=== PATIENT | male | born 1980 | race Caucasian/White ===

== ENCOUNTER 2019-01-12 09:15 | Emergency (ER) | payer BC ==
[2019-01-12 09:20] VITALS: BP 142/95; PULSE 90; RESP 18; TEMP 98
[2019-01-12] MEDS ORDERED: ACET/COD 300 MG/30 MG STARTER PACK 6 TAB BTL PO STA (09:33)
[2019-01-12] MEDS ORDERED: KETOROLAC 60 MG/2 ML VIAL IM STA (09:33)
--- NOTE | 2019-01-12 09:36 | ED ---
Extremity Problem HPI - General Chief complaint: Extremity Problem,Nontraumatic Stated complaint: Left shoulder pain Time Seen by Provider: 01/12/19 09:26 Source: patient, RN notes reviewed Mode of arrival: ambulatory Limitations: no limitations - History of Present Illness Initial comments: 39-year-old male presents emergency Department with chief complaint of left shoulder pain. Patient states his been having increasing symptoms last 2 days. Denies any trauma. Patient states that at rest he has no pain states since he moves it he has discomfort which feels like it's in the joint. Patient had no prior surgeries. Denies any paresthesias. Patient has no chest pain or shortness breath. Patient denies any rashes, swelling and redness to the joint. Patient has not taken any Tylenol or Motrin this time. - Related Data Previous Rx's Medication Instructions Recorded Cyclobenzaprine [Flexeril] 10 mg PO TID PRN #15 tab 01/12/19 Ibuprofen [Motrin] 600 mg PO Q8HR PRN #30 tab 01/12/19 Allergies Allergy/AdvReac Type Severity Reaction Status Date / Time No Known Allergies Allergy Verified 01/12/19 09:18 Review of Systems ROS Statement: Those systems with pertinent positive or pertinent negative responses have been documented in the HPI. ROS Other: All systems not noted in ROS Statement are negative. Past Medical History Past Medical History: No Reported History History of Any Multi-Drug Resistant Organisms: None Reported Additional Past Surgical History / Comment(s): LT knee surgery Past Psychological History: No Psychological Hx Reported Smoking Status: Never smoker Past Alcohol Use History: None Reported Past Drug Use History: None Reported General Exam Limitations: no limitations General appearance: alert, in no apparent distress Head exam: Present: atraumatic, normocephalic, normal inspection Neck exam: Present: normal inspection, full ROM. Absent: tenderness, me ningismus, lymphadenopathy Respiratory exam: Present: normal lung sounds bilaterally. Absent: respiratory distress, wheezes, rales, rhonchi, stridor Cardiovascular Exam: Present: regular rate, normal rhythm, normal heart sounds. Absent: systolic murmur, diastolic murmur, rubs, gallop, clicks Extremities exam: Present: other (Left shoulder limited range of motion secondary to pain, arm is neurovascularly intact, there is tenderness over the lateral anterior shoulder region, there is no swelling no ecchymosis. Patient has full range of motion at the left elbow, full strength. Patient reports pain with internal rotation) Skin exam: Present: warm, dry, intact, normal color. Absent: rash Course Vital Signs 01/12/19 09:18 Temperature 98 F Pulse Rate 90 Respiratory 18 Rate Blood Pressure 142/95 O2 Sat by Pulse 97 Oximetry Medical Decision Making - Medical Decision Making 39-year-old male presented from for left shoulder pain. Patient symptoms are consistent with bursitis. Patient given Toradol in emergency department. Patient treated with anti-inflammatories, muscle relaxers. Return parameters were discussed. Disposition Clinical Impression: Left shoulder pain, Bursitis of left shoulder Disposition: HOME SELF-CARE Condition: Stable Instructions (If sedation given, give patient instructions): Shoulder Bursitis (ED) Additional Instructions: Please return to the Emergency Department if symptoms worsen or any other concerns. Prescriptions: Cyclobenzaprine [Flexeril] 10 mg PO TID PRN #15 tab PRN Reason: Muscle Spasm Ibuprofen [Motrin] 600 mg PO Q8HR PRN #30 tab PRN Reason: Pain Is patient prescribed a controlled substance at d/c from ED?: No Referrals: Umer Foster MD [Primary Care Provider] - 1-2 days Adama Mandel DO [Doctor of Osteopathic Medicine] - 1-2 days Time of Disposition: 09:36
== END 2019-01-12 09:58 | disposition home or self-care (01) ==
LOC: EC 09:15
DX: M75.52 Bursitis of left shoulder (principal)
CPT/HCPCS: 99283; 96372; J1885

== ENCOUNTER 2024-08-08 14:47 | Observation (INO) | payer BC, OTHER ==
[2024-08-08] MEDS ORDERED: VANCOMYCIN IV PER PHARMACY 1 EACH MISC MISCELLANE PRN (15:25)
--- NOTE | 2024-08-08 16:05 | XR ---
Right hand Limited HISTORY: Puncture wound medial palm. COMPARISON: None TECHNIQUE: 2 views of the right hand were obtained. FINDINGS: There is mild swelling of the medial aspect of the right hand. The osseous structures are intact there is no fracture or focal intraosseous abnormality. No articula r abnormalities are seen. There are no radiopaque foreign bodies. IMPRESSION: Soft tissue swelling in the medial right hand with no radiopaque foreign body. No osseous or intra-ar ticular abnormalities. [facility], , 08/08/2024 4:02 PM
[2024-08-08] MEDS: SODIUM CHLORIDE 0.9% 1,000 ML IV STA (16:07)
[2024-08-08] MEDS: VANCOMYCIN 2,000 MG in SODIUM CHLORIDE 0.9% 500 ML 500 ML IVPB STA (16:07)
[2024-08-08 16:14] LABS: Basophils % (A) 0 %; Eosinophils # (A) 0.1 k/uL (0-0.7); Eosinophils % (A) 2 %; HCT 44.4 % (39.0-53.0); HGB 14.5 gm/dL (13.0-17.5); Lymphocytes # (A) 1.1 k/uL (1.0-4.8); Lymphocytes % (A) 23 %; MCH 29.6 pg (25.0-35.0); MCHC 32.7 g/dL (31.0-37.0); MCV 90.7 fL (80.0-100.0); Mean Platelet Volume 7.9; Monocytes # (A) 0.4 k/uL (0-1.0); Monocytes % (A) 8 %; Neutrophils % (A) 64 %; Platelet Count 167 k/uL (150-450); RDW 12.1 % (11.5-15.5); WBC 4.7 k/uL (3.8-10.6)
[2024-08-08 16:31] LABS: ALT 43 U/L (4-49); African American GFR (CKD) >90 (>60 ml/min/1.73 sqM); Albumin 4.7 g/dL (3.5-5.0); Anion Gap 10 mmol/L; Blood Urea Nitrogen 15 mg/dL (9-20); Calcium 9.6 mg/dL (8.4-10.2); Carbon Dioxide 25 mmol/L (22-30); Chloride 102 mmol/L (98-107); Glucose 92 mg/dL (74-99); Non-African American GFR(CKD) 90 (>60 ml/min/1.73 sqM); Sodium 137 mmol/L (137-145); Total Bilirubin 1.4 mg/dL (0.2-1.3); Total Protein 7.6 g/dL (6.3-8.2)
[2024-08-08] MEDS ORDERED: ONDANSETRON 4 MG/2 ML VIAL IVP PRN (16:54)
[2024-08-08] MEDS ORDERED: NALOXONE 0.4 MG/ML 1 ML VIAL IV PRN (16:54)
--- NOTE | 2024-08-08 16:57 | ED ---
General Adult HPI - General Chief complaint: Skin/Abscess/Foreign Body Stated complaint: R hand injury Time Seen by Provider: 08/08/24 15:18 Source: patient, RN notes reviewed, old records reviewed Mode of arrival: ambulatory Limitations: no limitations - History of Present Illness Initial comments: Patient is a 44-year-old male who presents emergency department for hand infection. Had a right palmar puncture on Monday at work by a piece of metal. Is up-to-date on tetanus. Was started on antibiotics at that time. Return to his outpatient clinic and hand was more swollen. Concern for possible worsening infection. Presents here for further evaluation and likely admission. No other acute complaints or medical history. Endorses right hand swelling but still has normal sensation. Slightly decreased range of motion secondary to edema however no loss of pulses. No loss of sensation. Presents for further evaluation. - Related Data Home Medications Medication Instructions Recorded Confirmed Ibuprofen [Motrin Ib] 400 - 600 mg PO Q8H PRN 08/08/24 08/08/24 Allergies Allergy/AdvReac Type Severity Reaction Status Date / Time No Known Allergies Allergy Verified 08/08/24 16:46 Review of Systems ROS Statement: Those systems with pertinent positive or pertinent negative responses have been documented in the HPI. Review of Systems: CONST: Denies fever EYES: Denies blurry vision ENT: Denies nasal congestion C/V: Denies Chest pain RESP: Denies shortness of breath GI: Denies abdominal pain : Denies dysuria SKIN: Endorses small puncture wound to right hand. MSK: Endorses right-hand swelling NEURO: Denies headache ROS Other: All systems not noted in ROS Statement are negative. Past Medical History Past Medical History: No Reported History History of Any Multi-Drug Resistant Organisms: None Reported Additional Past Surgical History / Comment(s): LT knee surgery Past Psychological History: No Psychological Hx Reported Smoking Status: Never smoker Past Alcohol Use History: None Reported Past Drug Use History: None Reported General Exam - General Exam Comments Initial Comments: General: Appears in no acute distress. HEAD: Normal with no signs of head trauma. EYES: EOMI ENT: Hearing grossly intact RESPIRATORY: Clear breath sounds bilaterally. No wheezes, rales, or rhonchi. C/V: Regular rate and rhythm. S1 and S2 auscultated, peripheral pulses 2+ and intact throughout ABD: Abd is soft, nontender, nondistended EXT: Normal range of motion, no obvious deformity SKIN: Right hand edema. Neurovascular intact. No concern for compartment syndrome at this time. Good peripheral pulses and good capillary refill. Patient does have a small entry wound with no significant discharge at this time. Edema does spread slightly into the wrist. Mild erythema. Warm to touch. NEURO: Alert and oriented x 4. No focal sensory or strength deficits. Limitations: no limitations Course Vital Signs 08/08/24 08/08/24 08/08/24 14:53 17:16 18:19 Temperature 98.3 F 99.5 F Pulse Rate 92 81 75 Respiratory 18 18 16 Rate Blood Pressure 144/92 145/88 152/89 O2 Sat by Pulse 97 98 99 Oximetry 08/08/24 20:00 Temperature 102 F H Pulse Rate 73 Respiratory 18 Rate Blood Pressure 154/94 O2 Sat by Pulse Oximetry Medical Decision Making - Medical Decision Making Was pt. sent in by a medical professional or institution (, PA, [employer], urgent care, hospital, or residential...) When possible be specific @ -Sent in by clinic for admission for IV antibiotics. Did you speak to anyone other than the patient for history (EMS, parent, family, police, friend...)? What history was obtained from this source @ -No Did you review nursing and triage notes (agree or disagree)? Why? @ -I reviewed and agree with nursing and triage notes Were old charts reviewed (outside hosp., previous admission, EMS record, old EKG, old radiological studies, urgent care reports/EKG's, residential records)? Report findings @ -No old charts were reviewed Differential Diagnosis (chest pain, altered mental status, abdominal pain women, abdominal pain men, vaginal bleeding, weakness, fever, dyspnea, syncope, heada debi, dizziness, GI bleed, back pain, seizure, CVA, palpatations, mental health, musculoskeletal)? @ -Cellulitis, abscess, compartment syndrome. This list is not all inclusive. EKG interpreted by me (3pts min.). @ -None done X-rays interpreted by me (1pt min.). @ -X-ray shows soft tissue edema. CT interpreted by me (1pt min.). @ -None done U/S interpreted by me (1pt. min.). @ -None done What testing was considered but not performed or refused? (CT, X-rays, U/S, labs)? Why? @ -None What meds were considered but not given or refused? Why? @ -None Did you discuss the management of the patient with other professionals (professionals i.e. , PA, FR[employer] C[employer]ER, lab, RT, psych nurse, social media community manager, medical reviewer, teacher, supply requirements officer, equity manager)? Give summary @ -No Was smoking cessation discussed for >3mins.? @ -No Was critical care preformed (if so, how long)? @ -No Were there social determinants of health that impacted care today? How? (Homelessness, low income, unemployed, alcoholism, drug addiction, transportation, low edu. Level, literacy, decrease access to med. care, fdc, rehab)? @ -No Was there de-escalation of care discussed even if they declined (Discuss DNR or withdrawal of care, Hospice)? DNR status @ -No What co-morbidities impacted this encounter? (DM, HTN, Smoking, COPD, CAD, Cancer, CVA, ARF, Chemo, Hep., AIDS, mental health diagnosis, sleep apnea, morbid obesity)? @ -None Was patient admitted / discharged? Hospital course, mention meds given and route, prescriptions, significant lab abnormalities, going to OR and other pertinent info. @ -Patient presents for concern for worsening right hand infection. Patient is up-to-date on tetanus. Will obtain infectious labs and admit the patient for failed outpatient treatment of cellulitis. Patient be started on IV vancomycin. He will be started on IV fluids. He was in agreement this plan. Vitals are within acceptable limits. Blood cultures obtained and sent. Labs are remarkable for no evidence of leuko cytosis. Remainder the labs unremarkable including normal lactic acid. X-ray shows soft tissue swelling. Patient will be admitted at this time. He was in agreement this plan. I spoke with the admitting provider, Dr. Greenwood who accepted the admission. Undiagnosed new problem with uncertain prognosis? @ -No Drug Therapy requiring intensive monitoring for toxicity (Heparin, Nitro, Insulin, Cardizem)? @ -No Were any procedures done? @ -No Diagnosis/symptom? @ -Cellulitis of hand Acute, or Chronic, or Acute on Chronic? @ -Acute Uncomplicated (without systemic symptoms) or Complicated (systemic symptoms)? @ -Complicated Side effects of treatment? @ -No Exacerbation, Progression, or Severe Exacerbation? @ -No Poses a threat to life or bodily function? How? (Chest pain, [place], MA, pneumonia, PE, COPD, DKA, ARF, appy, cholecystitis, CVA, Diverticulitis, Homicidal, Suicidal, threat to staff... and all critical care pts) @ -Yes - Lab Data Result diagrams: 08/08/24 15:44 08/08/24 15:44 Lab Results 08/08/24 08/08/24 08/08/24 Range/Units 15:44 15:44 15:44 WBC 4.7 (3.8-10.6) k/uL RBC 4.90 (4.30-5.90) m/uL Hgb 14.5 (13.0-17.5) gm/dL Hct 44.4 (39.0-53.0) % MCV 90.7 (80.0-100.0) fL MCH 29.6 (25.0-35.0) pg MCHC 32.7 (31.0-37.0) g/dL RDW 12.1 (11.5-15.5) % Plt Count 167 (150-450) k/uL MPV 7.9 Neutrophils % 64 % Lymphocytes % 23 % Monocytes % 8 % Eosinophils % 2 % Basophils % 0 % Neutrophils # 3.0 (1.3-7.7) k/uL Lymphocytes # 1.1 (1.0-4.8) k/uL Monocytes # 0.4 (0-1.0) k/uL Eosinophils # 0.1 (0-0.7) k/uL Basophils # 0.0 (0-0.2) k/uL Sodium 137 (137-145) mmol/L Potassium 5.1 (3.5-5.1) mmol/L Chloride 102 (98-107) mmol/L Carbon Dioxide 25 (22-30) mmol/L Anion Gap 10 mmol/L BUN 15 (9-20) mg/dL Creatinine 1.02 (0.66-1.25) mg/dL Est GFR (CKD-EPI)AfAm >90 (>60 ml/min/1.73 sqM) Est GFR (CKD-EPI)NonAf 90 (>60 ml/min/1.73 sqM) Glucose 92 (74-99) mg/dL Plasma Lactic Acid [place] 0.9 (0.7-2.0) mmol/L Calcium 9.6 (8.4-10.2) mg/dL Total Bilirubin 1.4 H (0.2-1.3) mg/dL AST 57 (17-59) U/L ALT 43 (4-49) U/L Alkaline Phosphatase 35 L (38-126) U/L Total Protein 7.6 (6.3-8.2) g/dL Albumin 4.7 (3.5-5.0) g/dL Disposition Clinical Impression: Cellulitis of hand Disposition: ADMITTED IP TO THIS HOSP Condition: Stable Time of Disposition: 16:45
[2024-08-08 17:00] LABS: AST 57 U/L (17-59); Alkaline Phosphatase 35 U/L (38-126); Potassium 5.1 mmol/L (3.5-5.1)
--- NOTE | 2024-08-08 17:53 | P.HPIM ---
History of Present Illness H&P Date: 08/08/24 44 year old M with no significant PMH presents to the ED. He reports a puncture wound from a file that happened on Monday. He saw occupational health and had the wound irrigated and was started on Clindamycin. During his follow up with occupational health today, he was advised to go to the ED. He reports redness extending past the wrist. He denies any fever or chills. He is right handed. In the ED he underwent extensive evaluation. BP 144/92, HR 92, RR 18, T 98.3F, 97% on RA. CBC and CMP significant for T. Bili 1.4, alk phos 35. Lactic acid 0.9. XR showed soft tissue swelling medial right hand with no radiopaque foreign body. Patient is admitted for right hand cellulitis failed outpatient treatment. General: non toxic, no distress, appears at stated age Derm: warm, dry Head: atraumatic, normocephalic, symmetric Eyes: EOMI, no lid lag, anicteric sclera Mouth: no lip lesion, mucus membranes moist Cardiovascular: S1 S2 reg. No murmurs, rubs, gallops Lungs: Clear to auscultation bilaterally, no accessory muscle use Ext: Right hand puncture wound medial volvar hand with no fluctuance or drainage with erythema extending above the wrist medially. Neuro: no focal neuro deficits Psych: Alert, oriented, appropriate affect Based on my assessment of this patient, this patient meets a high complexity level of care. Right hand cellulitis: Start Vancomycin dosed per pharmacy. Monitor renal function and vanc trough. Pain control with Tylenol 650 mg PO Q6H PRN, Iburpofen 400 mg PO Q6H PRN. Follow WCx and BCx. ID consulted. Elevated BP without the diagnosis of hypertension: Monitor BP. Would recommend weight loss and low salt diet at this time. Elevated total bilirubin: Unknown etiology. Monitor and outpatient workup. Obesity: Structured weight loss program. CODE STATUS: FULL CODE. DVT Prophylaxis: SCD GI Prophylaxis: Designated medical POA if patient is not able to make medical decisions for themselves: I have reviewed the following professional benefits sales consultant notes: ER note. I have reviewed the results of the following tests: As above. I have ordered the following tests: As above. I have discussed the care of this patient with the following independent historian: I have independently interpreted the following test below: I have discussed the management of this patient with the following physician: Dr. Burns Past Medical History Past Medical History: No Reported History History of Any Multi-Drug Resistant Organisms: None Reported Additional Past Surgical History / Comment(s): LT knee surgery Past Psychological History: No Psychological Hx Reported Smoking Status: Never smoker Past Alcohol Use History: None Reported Past Drug Use History: None Reported Medications and Allergies Home Medications Medication Instructions Recorded Confirmed Type Ibuprofen [Motrin Ib] 400 - 600 mg PO Q8H PRN 08/08/24 08/08/24 History Allergies Allergy/AdvReac Type Severity Reaction Status Date / Time No Known Allergies Allergy Verified 08/08/24 16:46 Physical Exam Vitals: Vital Signs Temp Pulse Resp BP Pulse Ox 08/08/24 17:16 81 18 145/88 98 08/08/24 14:53 98.3 F 92 18 144/92 97 Intake and Output 08/08/24 08/08/24 08/08/24 06:59 14:59 22:59 Other: Weight 129.274 kg Results CBC & Chem 7: 08/08/24 15:44 08/08/24 15:44 Labs: Abnormal Lab Results - Last 24 Hours (Table) 08/08/24 Range/Units 15:44 Total Bilirubin 1.4 H (0.2-1.3) mg/dL Alkaline Phosphatase 35 L (38-126) U/L
[2024-08-08] MEDS: SODIUM CHLORIDE 0.9% 1,000 ML IV SCH (18:18)
[2024-08-08] MEDS: ACETAMINOPHEN TAB 325 MG TAB PO PRN (20:24)
[2024-08-08] MEDS: IBUPROFEN 400 MG TAB PO PRN (21:06)
[2024-08-08] MEDS: VANCOMYCIN 2,000 MG in SODIUM CHLORIDE 0.9% 500 ML 500 ML IVPB SCH (23:30)
[2024-08-09 08:43] LABS: Basophils # (A) 0.03 X 10*3/uL (0.00-0.10); Basophils % (A) 0.6 %; Eosinophils # (A) 0.13 X 10*3/uL (0.04-0.35); Eosinophils % (A) 2.8 %; HCT 41.2 % (39.6-50.0); HGB 14.2 g/dL (13.0-17.0); Lymphocytes # (A) 1.88 X 10*3/uL (0.90-5.00); Lymphocytes % (A) 39.9 %; MCH 30.8 pg (27.0-32.0); MCHC 34.5 g/dL (32.0-37.0); MCV 89.4 FL (80.0-97.0); Mean Platelet Volume 10.5 FL (9.5-12.2); Monocytes # (A) 0.71 X 10*3/uL (0.20-1.00); Monocytes % (A) 15.1 %; NRBC Per 100 WBC 0 X 10*3/uL (0.00-0.01); Neutrophils # (A) 1.94 X 10*3/uL (1.80-7.70); Neutrophils % (A) 41.2 %; Platelet Count 169 X 10*3/uL (140-440); RBC 4.61 X 10*6/uL (4.40-5.60); RDW 12.1 % (11.5-14.5); WBC 4.71 X 10*3/uL (4.50-10.00)
[2024-08-09 08:50] LABS: ALT 31 U/L (10-49); AST 27 U/L (14-35); Albumin 3.8 g/dL (3.8-4.9); Albumin/Globulin Ratio 1.73 Ratio (1.60-3.17); Alkaline Phosphatase 41 U/L (41-126); Blood Urea Nitrogen 9.3 mg/dL (9.0-27.0); Calcium 8.3 mg/dL (8.7-10.3); Carbon Dioxide 25.1 mmol/L (21.6-31.8); Chloride 106 mmol/L (96-109); Globulin 2.2 g/dL (1.6-3.3); Glucose 95 mg/dL (70-110); Sodium 140 mmol/L (135-145); Total Bilirubin 0.5 mg/dL (0.3-1.2)
--- NOTE | 2024-08-09 13:16 | P.PN ---
Subjective Progress Note Date: 08/09/24 44 year old M with no significant PMH presents to the ED. He reports a puncture wound from a file that happened on Monday. He saw occupational health and had the wound irrigated and was started on Clindamycin. During his follow up with occupational health today, he was advised to go to the ED. He reports redness extending past the wrist. He denies any fever or chills. He is right handed. In the ED he underwent extensive evaluation. BP 144/92, HR 92, RR 18, T 98.3F, 97% on RA. CBC and CMP significant for T. Bili 1.4, alk phos 35. Lactic acid 0.9. XR showed soft tissue swelling medial right hand with no radiopaque foreign body. Patient is admitted for right hand cellulitis failed outpatient treatment. 08/09 Patient was seen and examined. No complaints. Doing well. Right hand swelling and redness going down. CBC and CMP significant for Ca 8.3, total protein 6. Discussed with Dr. Douglas, continue antibiotics for 1 more day. General: non toxic, no distress, appears at stated age Derm: warm, dry Head: atraumatic, normocephalic, symmetric Eyes: EOMI, no lid lag, anicteric sclera Mouth: no lip lesion, mucus membranes moist Cardiovascular: good distal perfusion in all 4 extremities Lungs: breathing comfortably, no accessory muscle use Ext: Right hand puncture wound medial volvar hand with no fluctuance or drainage with erythema extending above the wrist medially. Neuro: no focal neuro deficits Psych: Alert, oriented, appropriate affect Based on my assessment of this patient, this patient meets a high complexity level of care. Right hand cellulitis: Vancomycin dosed per pharmacy. Monitor renal function and vanc trough. Pain control with Tylenol 650 mg PO Q6H PRN, Iburpofen 400 mg PO Q6H PRN. Follow WCx and BCx. ID consulted. Elevated BP without the diagnosis of hypertension: Monitor BP. Would recommend weight loss and low salt diet at this time. Elevated total bilirubin: Unknown etiology. Monitor and outpatient workup. Obesity: Structured weight loss program. CODE STATUS: FULL CODE. DVT Prophylaxis: SCD GI Prophylaxis: Designated medical POA if patient is not able to make medical decisions for themselves: I have reviewed the following international travel consultant notes: I have reviewed the results of the following tests: CBC, CMP. I have ordered the following tests: BMP, Vanc trough in AM. I have discussed the care of this patient with the following independent historian: I have independently interpreted the following test below: I have discussed the management of this patient with the following physician: Dr. Douglas Objective - Vital Signs Vital signs: Vital Signs Temp 97.7 F 08/09/24 07:20 Pulse 64 08/09/24 07:20 Resp 18 08/09/24 07:20 BP 128/89 08/09/24 07:20 Pulse Ox 96 08/09/24 07:20 FiO2 Intake & Output 08/08/24 08/09/24 08/09/24 18:59 06:59 18:59 Weight 129.274 kg Other: Voiding Method Toilet # Voids 3 - Labs CBC & Chem 7: 08/09/24 04:16 08/09/24 04:16 Labs: Abnormal Lab Results - Last 24 Hours (Table) 08/08/24 08/09/24 Range/Units 15:44 04:16 BUN/Creatinine Ratio 9.30 L (12.00-20.00) Ratio Calcium 8.3 L (8.7-10.3) mg/dL Total Bilirubin 1.4 H (0.2-1.3) mg/dL Alkaline Phosphatase 35 L (38-126) U/L Total Protein 6.0 L (6.2-8.2) g/dL
--- NOTE | 2024-08-09 23:12 | P.CONS ---
History of Present Illness - Reason for Consult Consult date: 08/09/24 Hand cellulitis Requesting physician: Albert Burns - Chief Complaint Right hand swelling x 2 days - History of Present Illness Patient is a 44-year-old male with no significant past medical history presenting to the hospital for evaluation of right hand swelling apparently the patient did have a puncture wound from a piece of metal at work on Monday that is 3 days before presentation to the hospital patient mention he is up-to-date on tetanus and was seen at an urgent care with the patient has been prescribed Augmentin that he took however the patient noticed to have increasing swelling to the right hand with which concerned the patient subsequently presented to hospital patient did have mild dull aching pain without radiation and no significant purulent drainage on presentation to the hospital the patient was afebrile however last night he did spike a fever of 102 F patient was nontachycardic hypotensive or hypoxic patient did have a white count of 4.7 creatinine has been normal liver enzymes are normal local cultures obtained which are currently pending patient did have x-ray of the hand soft tissue swelling in the medial right hand with no radiopaque foreign body infectious disease was consulted for further management of antibiotic therapy Review of Systems Positive point and negatives has been mentioned in the HPI, complete review of systems was performed and all other systems are negative Past Medical History Past Medical History: No Reported History History of Any Multi-Drug Resistant Organisms: None Reported Additional Past Surgical History / Comment(s): LT knee surgery Past Anesthesia/Blood Transfusion Reactions: No Reported Reaction Past Psychological History: No Psychological Hx Reported Smoking Status: Never smoker Past Alcohol Use History: None Reported Past Drug Use History: None Reported Medications and Allergies Home Medications Medication Instructions Recorded Confirmed Type Ibuprofen [Motrin Ib] 400 - 600 mg PO Q8H PRN 08/08/24 08/08/24 History Allergies Allergy/AdvReac Type Severity Reaction Status Date / Time No Known Allergies Allergy Verified 08/08/24 16:46 Physical Exam Vitals: Vital Signs Temp Pulse Pulse Resp BP BP BP 08/09/24 07:20 97.7 F 64 18 128/89 08/09/24 01:31 98.3 F 78 16 110/65 08/08/24 22:10 99.5 F 08/08/24 20:55 100.2 F H 92 16 160/95 08/08/24 20:00 102 F H 73 18 154/94 08/08/24 18:19 99.5 F 75 16 152/89 08/08/24 17:16 81 18 145/88 08/08/24 14:53 98.3 F 92 18 144/92 Pulse Ox 08/09/24 07:20 96 08/09/24 01:31 96 08/08/24 22:10 08/08/24 20:55 100 08/08/24 20:00 08/08/24 18:19 99 08/08/24 17:16 98 08/08/24 14:53 97 Intake and Output 08/08/24 08/09/24 08/09/24 22:59 06:59 14:59 Other: Voiding Method Toilet # Voids 2 3 Weight 129.274 kg GENERAL DESCRIPTION: Middle-aged male lying in bed, no distress. No tachypnea or accessory muscle of respiration use. HEENT: Shows Pallor , no scleral icterus. Oral mucous membrane is dry. No pharyngeal erythema or thrush NECK: Trachea central, no thyromegaly. LUNGS: Unlabored breathing. Clear to auscultation anteriorly. No wheeze or crackle. HEART: S1, S2, regular rate and rhythm. No loud murmur ABDOMEN: Soft, no tenderness , guarding or rigidity, no organomegaly EXTREMITIES: Right hand palmar aspect did have a puncture wound with some swelling no purulent drainage was noticed SKIN: No rash, no masses palpable. NEUROLOGICAL: The patient is awake, alert, oriented x3, mood and affect normal. Results CBC & Chem 7: 08/09/24 04:16 08/09/24 04:16 Labs: Abnormal Lab Results - Last 24 Hours (Table) 08/08/24 08/09/24 Range/Units 15:44 04:16 BUN/Creatinine Ratio 9.30 L (12.00-20.00) Ratio Calcium 8.3 L (8.7-10.3) mg/dL Total Bilirubin 1.4 H (0.2-1.3) mg/dL Alkaline Phosphatase 35 L (38-126) U/L Total Protein 6.0 L (6.2-8.2) g/dL Assessment and Plan (1) Cellulitis of hand Current Visit: Yes Status: Acute Code(s): L03.119 - CELLULITIS OF UNSPECIFIED PART OF LIMB SNOMED Code(s): 46574604 (2) Failure of outpatient treatment Current Visit: Yes Status: Acute Code(s): Z78.9 - OTHER SPECIFIED HEALTH STATUS SNOMED Code(s): 588293800 Plan: 1patient presented to hospital with right hand swelling in this patient who did have a puncture wound to the palmar aspect of the right hand 3 days before presentation to hospital did have x-ray did not show any foreign body at the pat ient did not responded to the outpatient oral Augmentin therapy with a question of possible community associated MRSA. 2keeping in mind the patient did have fever last night and the culture still pending we will recommend to keep the patient on IV antibiotic for another 24 to 48-hour depending upon the culture and clinical response this has been discussed with admitting physician. 3vancomycin pharmacy to dose target trough of 15 while watching kidney function and Vanco trough closely We will follow on clinical condition and cultures to further adjust medication if needed Thank you for this consultation we will follow the patient along with you Dictation was produced using [employer] dictation software. please excuse any grammatical, word or spelling errors. Time with Patient: Greater than 30
[2024-08-10 07:40] VITALS: BP 130/78; PULSE 60; RESP 17; TEMP 97.9
[2024-08-10] MEDS: VANCOMYCIN TROUGH DUE 1 EACH MISC MISCELLANE ONE (08:14)
[2024-08-10 08:24] LABS: African American GFR (CKD) >90 (>60 ml/min/1.73 sqM); Non-African American GFR(CKD) >90 (>60 ml/min/1.73 sqM)
--- NOTE | 2024-08-10 12:00 | P.DS ---
Providers Date of admission: 08/08/24 16:56 Expected date of discharge: 08/10/24 Attending physician: Sanaz Greenwood MD Consults: 08/08/24 16:54 Consult Physician Routine Consulting Provider: Radha Douglas Consult Reason/Comments: hand cellulitis Do you want consulting provider notified?: Yes Primary care physician: [facility] Course: 44 year old M with no significant PMH presents to the ED. He reports a puncture wound from a file that happened on Monday. He saw occupational health and had the wound irrigated and was started on Clindamycin. During his follow up with occupational health today, he was advised to go to the ED. He reports redness extending past the wrist. He denies any fever or chills. He is right handed. In the ED he underwent extensive evaluation. BP 144/92, HR 92, RR 18, T 98.3F, 97% on RA. CBC and CMP significant for T. Bili 1.4, alk phos 35. Lactic acid 0.9. XR showed soft tissue swelling medial right hand with no radiopaque foreign body. Patient is admitted for right hand cellulitis failed outpatient treatment. 08/09 Patient was seen and examined. No complaints. Doing well. Right hand swelling and redness going down. CBC and CMP significant for Ca 8.3, total protein 6. Discussed with Dr. Douglas, continue antibiotics for 1 more day. 08/10 Patient was seen and examined. Improved erythema and swelling. Discussed with Dr. Douglas, OK for discharge on Bactrim. Plans for discharge home today. Follow up with PCP within 1-[address] Douglas within 1 week of discharge. General: non toxic, no distress, appears at stated age Derm: warm, dry Head: atraumatic, normocephalic, symmetric Eyes: EOMI, no lid lag, anicteric sclera Mouth: no lip lesion, mucus membranes moist Cardiovascular: good distal perfusion in all 4 extremities Lungs: breathing comfortably, no accessory muscle use Ext: Right hand puncture wound medial volvar hand with no fluctuance or drainage with erythema extending above the wrist medially (improved) Neuro: no focal neuro deficits Psych: Alert, oriented, appropriate affect Discharge Diagnosis: Right hand cellulitis Elevated BP without the diagnosis of hypertension Elevated total bilirubin Obesity This complex discharge took 35 minutes to complete. Patient Condition at Discharge: Stable Plan - Discharge Summary Discharge Rx Participant: No New Discharge Prescriptions: New Sulfamethox-Tmp 800-160Mg [Bactrim DS 800-160 mg] 1 tab PO Q12HR #20 tab Continue Ibuprofen [Motrin Ib] 400 - 600 mg PO Q8H PRN PRN Reason: Fever And/ Or Pain Discharge Medication List Ibuprofen [Motrin Ib] 400 - 600 mg PO Q8H PRN 08/08/24 [History] Sulfamethox-Tmp 800-160Mg [Bactrim DS 800-160 mg] 1 tab PO Q12HR #20 tab 08/10/24 [Rx] Follow up Appointment(s)/Referral(s): Umer Foster MD [Primary Care Provider] - 1-2 days Radha Douglas MD [STAFF PHYSICIAN] - 1 Week Discharge Disposition: HOME SELF-CARE
--- NOTE | 2024-08-10 13:45 | P.PN ---
Subjective Progress Note Date: 08/10/24 Principal diagnosis: Reason for follow-up is right hand cellulitis Patient is a 44-year-old male with no significant past medical history presenting to the hospital for evaluation of right hand swelling apparently the patient did have a puncture wound from a piece of metal at work on Monday subsequently seen in urgent care and the patient has been treated with Augmentin without any improvement presented to hospital with worsening swelling concerning for hand cellulitis x-rays were negative for any foreign body. On today's evaluation that is 08/10/2024,the patient denies any fever or any chills, patient is breathing comfortably on room air, the patient denies chest pain shortness of breath and no significant cough, patient denies abdominal pain, no nausea vomiting or diarrhea. Right hand swelling redness has decreased no drainage. Patient did have a creatinine 0.77 and Vanco trough is 19.8 cultures so far pending Objective - Vital Signs Vital signs: Vital Signs Temp 97.9 F 08/10/24 07:39 Pulse 60 08/10/24 07:39 Resp 17 08/10/24 07:39 BP 130/78 08/10/24 07:39 Pulse Ox 96 08/10/24 07:39 FiO2 Intake & Output 08/09/24 08/10/24 08/10/24 18:59 06:59 18:59 Intake Total 2160 Balance 2160 Intake: Oral 2160 Other: Voiding Method Toilet Toilet # Voids 1 2 - Exam GENERAL DESCRIPTION: Middle-age male lying in bed in no distress RESPIRATORY SYSTEM: Unlabored breathing , decreased breath sounds at bases HEART: S1 S2 regular rate and rhythm , ABDOMEN: Soft , no tenderness EXTREMITIES: Right hand swelling has decreased no drainage - Labs CBC & Chem 7: 08/09/24 04:16 08/10/24 07:07 Labs: Microbiology - Last 24 Hours (Table) 08/08/24 15:44 Blood Culture - Preliminary Blood 08/08/24 15:44 Gram Stain - Preliminary Hand - Right Wound Culture - Preliminary Assessment and Plan (1) Cellulitis of hand Status: Acute Code(s): L03.119 - CELLULITIS OF UNSPECIFIED PART OF LIMB SNOMED Code(s): 02490224 (2) Failure of outpatient treatment Status: Acute Code(s): Z78.9 - OTHER SPECIFIED HEALTH STATUS SNOMED Code(s): 611306025 Plan: 1patient presented to hospital with right hand swelling in this patient who did have a puncture wound to the palmar aspect of the right hand 3 days before presentation to hospital did have x-ray did not show any foreign body at the pa tient did not responded to the outpatient oral Augmentin therapy with a question of possible community associated MRSA. 2patient did have resolution of his fever improvement in the right hand swellin g and redness we will consider a 10-day course of oral Bactrim DS on discharge and a close outpatient follow-up discussed with admitting team Dictation was produced using [employer] dictation software. please excuse any grammatical, word or spelling errors. Time with Patient: Less than 30
[2024-08-10] MEDS ORDERED: VANCOMYCIN 1,750 MG in SODIUM CHLORIDE 0.9% 500 ML 500 ML IVPB SCH (16:00)
== END 2024-08-10 13:37 | disposition home or self-care (01) ==
LOC: EC 14:47 → 6NMEDSUR 16:56 → 5NMEDONC 19:48
PROVIDERS: ADMIT Family Medicine; ATTEND Family Medicine
DX: L03.113 Cellulitis of right upper limb (principal); R03.0 Elevated blood-pressure reading, without diagnosis of hypertension; E80.6 Other disorders of bilirubin metabolism; E66.9 Obesity, unspecified; Z68.34 Body mass index [BMI] 34.0-34.9, adult
CPT/HCPCS: 96365 ×2; 96366 ×3; 99285; 36415; 80053 ×2; 82565; 83605; 85025 ×2; 80202; 87040; 87070; 87205; 73120; G0378 ×4; J3370 ×3

== ENCOUNTER 2024-08-12 14:42 | Emergency (ER) | payer BC, OTHER ==
[2024-08-12 14:50] VITALS: TEMP 97.6
[2024-08-12 16:58] LABS: Basophils % (A) 1 %; Eosinophils # (A) 0.2 k/uL (0-0.7); Eosinophils % (A) 3 %; HGB 15.3 gm/dL (13.0-17.5); Lymphocytes # (A) 1.4 k/uL (1.0-4.8); Lymphocytes % (A) 30 %; MCH 29.7 pg (25.0-35.0); MCHC 33.1 g/dL (31.0-37.0); MCV 89.7 fL (80.0-100.0); Mean Platelet Volume 7.8; Monocytes # (A) 0.3 k/uL (0-1.0); Monocytes % (A) 5 %; Neutrophils # (A) 2.9 k/uL (1.3-7.7); Neutrophils % (A) 59 %; Platelet Count 225 k/uL (150-450); RBC 5.13 m/uL (4.30-5.90); RDW 12.2 % (11.5-15.5); WBC 4.9 k/uL (3.8-10.6)
[2024-08-12] MEDS: SODIUM CHLORIDE 0.9% 1,000 ML IV STA (16:58)
--- NOTE | 2024-08-12 17:03 | ED ---
Skin/Abscess/FB HPI - General Chief complaint: Skin/Abscess/Foreign Body Stated complaint: hand swelling Source: patient Mode of arrival: ambulatory Limitations: no limitations - History of Present Illness Initial comments: This is a 44-year-old male presenting with right hand pain and swelling x 1 day. Patient endorses suffering a puncture wound to his right hand about 1 week ago. Endorses being seen in ER 5 days ago and admitted for 2 days before being discharged with Bactrim DS p.o. Patient states symptoms were improving before worsening suddenly earlier today. Patient denies fever, chills, discharge, severe pain to hand. Onset/Timin -: days(s) Tetanus Up to Date: yes Location: R hand Severity: moderate - Related Data Home Medications Medication Instructions Recorded Confirmed Ibuprofen [Motrin Ib] 400 - 600 mg PO Q8H PRN 08/08/24 08/08/24 Previous Rx's Medication Instructions Recorded Sulfamethox-Tmp 800-160Mg [Bactrim 1 tab PO Q12HR #20 tab 08/10/24 DS 800-160 mg] clindamycin HCL 300 mg PO QID #40 cap 08/12/24 Allergies Allergy/AdvReac Type Severity Reaction Status Date / Time No Known Allergies Allergy Verified 08/12/24 14:50 Review of Systems ROS Statement: Those systems with pertinent positive or pertinent negative responses have been documented in the HPI. ROS Other: All systems not noted in ROS Statement are negative. Past Medical History Past Medical History: No Reported History History of Any Multi-Drug Resistant Organisms: None Reported Additional Past Surgical History / Comment(s): LT knee surgery Past Anesthesia/Blood Transfusion Reactions: No Reported Reaction Past Psychological History: No Psychological Hx Reported Smoking Status: Never smoker Past Alcohol Use History: None Reported Past Drug Use History: None Reported General Exam Limitations: no limitations General appearance: alert, in no apparent distress Head exam: Present: atraumatic, normocephalic, normal inspection Eye exam: Present: normal appearance, PERRL, EOMI. Absent: scleral icterus, conjunctival injection, periorbital swelling ENT exam: Present: normal exam, mucous membranes moist Neck exam: Present: normal inspection. Absent: tenderness, meningismus, lymphadenopathy Respiratory exam: Present: normal lung sounds bilaterally. Absent: respiratory distress, wheezes, rales, rhonchi, stridor Cardiovascular Exam: Present: regular rate, normal rhythm, normal heart sounds. Absent: systolic murmur, diastolic murmur, rubs, gallop, clicks GI/Abdominal exam: Present: soft, normal bowel sounds. Absent: distended, tenderness, guarding, rebound, rigid Extremities exam: Present: full ROM, tenderness (Positive right hand moderate edema especially on dorsal aspect. Warmth and tenderness also noted. No obvious discharge or foreign body), normal capillary refill. Absent: pedal edema, joint swelling, calf tenderness Back exam: Present: normal inspection Neurological exam: Present: alert, oriented X3, CN II-XII intact Psychiatric exam: Present: normal affect, normal mood Skin exam: Present: warm, dry, intact, normal color. Absent: rash Course Vital Signs 08/12/24 08/12/24 14:43 17:37 Temperature 97.6 F Pulse Rate 86 72 Respiratory 18 20 Rate Blood Pressure 144/95 155/87 O2 Sat by Pulse 97 97 Oximetry Medical Decision Making - Medical Decision Making Was pt. sent in by a medical professional or institution (, PA, INVESTMENT STRATEGIST, urgent care, hospital, or fdc...) When possible be specific @ -No Did you speak to anyone other than the patient for history (EMS, parent, family, police, friend...)? What history was obtained from this source @ -No Did you review nursing and triage notes (agree or disagree)? Why? @ -I reviewed and agree with nursing and triage notes Were old charts reviewed (outside hosp., previous admission, EMS record, old EKG, old radiological studies, urgent care reports/EKG's, fdc records)? Report findings @ -No old charts were reviewed Differential Diagnosis (chest pain, altered mental status, abdominal pain women, abdominal pain men, vaginal bleeding, weakness, fever, dyspnea, syncope, heada debi, dizziness, GI bleed, back pain, seizure, CVA, palpatations, mental health, musculoskeletal)? @ -Hand cellulitis, compression syndrome, puncture wound with retained foreign body, this list is not exhaustive EKG interpreted by me (3pts min.). @ -Not done X-rays interpreted by me (1pt min.). @ -None done CT interpreted by me (1pt min.). @ -None done U/S interpreted by me (1pt. min.). @ -None done What testing was considered but not performed or refused? (CT, X-rays, U/S, labs)? Why? @ -None What meds were considered but not given or refused? Why? @ -None Did you discuss the management of the patient with other professionals (professionals i.e. , PA, INVESTMENT STRATEGIST, lab, RT, psych nurse, social sciences professor, corporate sales manager, teacher, interface control officer, disease case manager)? Give summary @ -No Was smoking cessation discussed for >3mins.? @ -No Was critical care preformed (if so, how long)? @ -No Were there social determinants of health that impacted care today? How? (Homelessness, low income, unemployed, alcoholism, drug addiction, transportation, low edu. Level, literacy, decrease access to med. care, care home, rehab)? @ -No Was there de-escalation of care discussed even if they declined (Discuss DNR or withdrawal of care, Hospice)? DNR status @ -No What co-morbidities impacted this encounter? (DM, HTN, Smoking, COPD, CAD, Cancer, CVA, ARF, Chemo, Hep., AIDS, mental health diagnosis, sleep apnea, morbid obesity)? @ -None Was patient admitted / discharged? Hospital course, mention meds given and route, prescriptions, significant lab abnormalities, going to OR and other pertinent info. @ -Discharge. Patient given Rocephin IV. Advised to hold on Bactrim DS use and begin clindamycin p.o. advised follow-up with PCP or return to ER if symptoms do not improve or worsen Undiagnosed new problem with uncertain prognosis? @ -No Drug Therapy requiring intensive monitoring for toxicity (Heparin, Nitro, Insulin, Cardizem)? @ -No Were any procedures done? @ -No Diagnosis/symptom? @ -Hand cellulitis Acute, or Chronic, or Acute on Chronic? @ -Acute Uncomplicated (without systemic symptoms) or Complicated (systemic symptoms)? @ -Uncomplicated Side effects of treatment? @ -No Exacerbation, Progression, or Severe Exacerbation? @ -No Poses a threat to life or bodily function? How? (Chest pain, [place], [place], pneumonia, PE, COPD, DKA, ARF, appy, cholecystitis, CVA, Diverticulitis, Homicidal, Suicidal, threat to staff... and all critical care pts) @ -No - Lab Data Result diagrams: 08/12/24 16:50 08/12/24 16:50 Lab Results 08/12/24 08/12/24 Range/Units 16:50 16:50 WBC 4.9 (3.8-10.6) k/uL RBC 5.13 (4.30-5.90) m/uL Hgb 15.3 (13.0-17.5) gm/dL Hct 46.0 (39.0-53.0) % MCV 89.7 (80.0-100.0) fL MCH 29.7 (25.0-35.0) pg MCHC 33.1 (31.0-37.0) g/dL RDW 12.2 (11.5-15.5) % Plt Count 225 (150-450) k/uL MPV 7.8 Neutrophils % 59 % Lymphocytes % 30 % Monocytes % 5 % Eosinophils % 3 % Basophils % 1 % Neutrophils # 2.9 (1.3-7.7) k/uL Lymphocytes # 1.4 (1.0-4.8) k/uL Monocytes # 0.3 (0-1.0) k/uL Eosinophils # 0.2 (0-0.7) k/uL Basophils # 0.0 (0-0.2) k/uL Sodium 139 (137-145) mmol/L Potassium 4.2 (3.5-5.1) mmol/L Chloride 104 (98-107) mmol/L Carbon Dioxide 25 (22-30) mmol/L Anion Gap 10 mmol/L BUN 13 (9-20) mg/dL Creatinine 1.07 (0.66-1.25) mg/dL Est GFR (CKD-EPI)AfAm >90 (>60 ml/min/1.73 sqM) Est GFR (CKD-EPI)NonAf 85 (>60 ml/min/1.73 sqM) Glucose 104 H (74-99) mg/dL Calcium 9.3 (8.4-10.2) mg/dL Total Bilirubin 0.5 (0.2-1.3) mg/dL AST 29 (17-59) U/L ALT 36 (4-49) U/L Alkaline Phosphatase 53 (38-126) U/L Total Protein 7.2 (6.3-8.2) g/dL Albumin 4.5 (3.5-5.0) g/dL Disposition Clinical Impression: Cellulitis of hand Disposition: HOME SELF-CARE Condition: Good Instructions (If sedation given, give patient instructions): Cellulitis (ED) Additional Instructions: Advised to hold on Bactrim DS use and begin clindamycin p.o. Prescriptions: clindamycin HCL 300 mg PO QID #40 cap Is patient prescribed a controlled substance at d/c from ED?: No Referrals: Umer Foster MD [Primary Care Provider] - 1-2 days Time of Disposition: 17:02
[2024-08-12 17:15] LABS: ALT 36 U/L (4-49); AST 29 U/L (17-59); African American GFR (CKD) >90 (>60 ml/min/1.73 sqM); Albumin 4.5 g/dL (3.5-5.0); Alkaline Phosphatase 53 U/L (38-126); Anion Gap 10 mmol/L; Blood Urea Nitrogen 13 mg/dL (9-20); Calcium 9.3 mg/dL (8.4-10.2); Carbon Dioxide 25 mmol/L (22-30); Chloride 104 mmol/L (98-107); Glucose 104 mg/dL (74-99); Non-African American GFR(CKD) 85 (>60 ml/min/1.73 sqM); Potassium 4.2 mmol/L (3.5-5.1); Sodium 139 mmol/L (137-145); Total Bilirubin 0.5 mg/dL (0.2-1.3); Total Protein 7.2 g/dL (6.3-8.2)
[2024-08-12 17:38] VITALS: BP 155/87; PULSE 72; RESP 20
== END 2024-08-12 17:38 | disposition home or self-care (01) ==
LOC: EC 14:42
DX: L03.113 Cellulitis of right upper limb (principal)
CPT/HCPCS: 36415; 80053; 85025